=== PATIENT | female | born 1940 | race Caucasian/White ===

== ENCOUNTER 2016-07-11 08:05 | Day surgery (SDC) | payer MEDICARE ==
[~2016-07-11 08:05] MED LIST: ACET325 PO; ASPI81 PO; ATOR10TA PO; COZA100T PO; DUONI NEB; FENO160T PO; MULT1TAB PO; NORV5TAB PO; OMEG1CAP53 PO; PRIL20CA PO
[2016-07-11 08:22] VITALS: BP 198/95; PULSE 66; RESP 20; TEMP 97.7; O2SAT 97
[2016-07-11] MEDS ORDERED: METO50TA PO (08:24)
[2016-07-11] MEDS ORDERED: VITA10003 PO (08:24)
[2016-07-11] MEDS ORDERED: SODIUM CHLORID 0.9% 500 ML INJ 500 ML IV SCH (09:00)
[2016-07-11 12:10] VITALS: BP 167/74; PULSE 67; RESP 20; TEMP 99.1; O2SAT 94
[2016-07-11] MEDS ORDERED: IODIXANOL 320 MG/ML 10 ML VIAL (for Rad CT) IV ONE (12:25)
--- NOTE | 2016-07-11 14:41 | RADRPT ---
EXAM DATE/TIME: 07/11/2016 11:40 [facility] COMPARISON: CT PULMONARY ANGIOGRAM, May 27, 2014, 4:46. INDICATIONS : Bilateral lower extremity claudation IV CONTRAST: 100 cc Visipaque (iodixanol) IV RADIATION DOSE: 10.15 CTDIvol (mGy) MEDICAL HISTORY : Cardiovascular disease. Chronic obstructive pulmonary disease. Hypertension.Renal disease SURGICAL HISTORY : Hysterectomy. CABG ENCOUNTER: Initial ACUITY: 1 day PAIN SCALE: 0/10 LOCATION: Bilateral extremities TECHNIQUE: Volumetric scanning was performed using a multi-row detector CT scanner. The data was post processed with a variety of visualization algorithms including full volume maximum intensity projection, multi -planar sliding thin slab reformation, curved planar reformation, and surface rendering techniques. Using automated exposure control and adjustment of the mA and/or kV according to patient size, radiat ion dose was kept as low as reasonably achievable to obtain optimal diagnostic quality images. FINDINGS: There is a 1.2 cm nodule in the right lower lobe which appears larger than 2014. This is only increme ntally larger and PET scan is recommended to further evaluate this. The liver and spleen are normal i n size and no focal defects are identified. There are multiple stones within the gallbladder without wall thickening or pericholecystic fluid the largest measuring 6 mm. The pancreas demonstrates no cate dence of mass and there is no dilatation of the pancreatic duct. The adrenal glands and kidneys appea r normal bilaterally. No hydronephrosis or mass lesions are identified. There is diverticulosis witho ut evidence of diverticulitis. The aorta is normal in caliber. There is no evidence of aneurysm or dissection. There is 40-50% steno sis at the origin of the celiac axis. The superior mesenteric artery origin is patent. Bilateral acce [place] renal arteries are present. He lower pole renal artery on the left demonstrates findings of fibr omuscular dysplasia. The inferior mesenteric artery is not identified. Examination of the right lower extremity demonstrates no evidence of inflow stenosis. The common femo ral artery is patent. The superficial femoral artery is patent. The popliteal artery is patent. The c ontrast is dilute but no definite stenosis and infrapopliteal vessels is identified. Examination of the left lower extremity demonstrates no evidence of inflow stenosis. The common femor al artery is patent. The superficial femoral artery is patent. The popliteal artery is patent. There is three-vessel runoff to the ankle. CONCLUSION: 1. Unremarkable CT angiography of the aorta and lower extremities. No segmental occlusion is identifi ed though there is limited evaluation of the infrapopliteal vessels. 2. 1.2 cm nodule in the right lower lobe. PET/CT scan is recommended to further evaluation if clinica lly indicated. 3. Cholelithiasis 4. Fibromuscular dysplasia involving left renal artery Moustapha White MD on July 11, 2016 at 14:31 Board Certified Radiologist. This report was verified electronically.
[2016-10-24] MEDS ORDERED: TYLE325T PO (12:06)
[2016-10-24] MEDS ORDERED: FISH1000 (12:06)
[2016-10-24] MEDS ORDERED: ASPI1TAB69 PO (12:06)
[2016-10-24] MEDS ORDERED: IPRAAER INH (12:06)
[2016-10-24] MEDS ORDERED: COZA50TA PO (12:06)
[2016-10-24] MEDS ORDERED: AMLO10 PO (12:06)
[2016-10-24] MEDS ORDERED: PRIL20CA9 PO (12:06)
[2016-10-30] MEDS ORDERED: NAPR220T95 PO (07:42)
[2016-11-09] MEDS ORDERED: ASPI81TA11 PO (10:27)
[2016-11-09] MEDS ORDERED: PRIL20TA2 PO (10:27)
[2016-11-09] MEDS ORDERED: VITA100036 PO (10:28)
[2016-11-09] MEDS ORDERED: MEDI220T PO (10:28)
== END 2016-07-11 12:30 | disposition home or self-care (01) ==
LOC: HRAD 08:05 → HRIP 08:05 → HRAD 12:30
PROVIDERS: ATTEND Surgery Vascular Surgery
DX: I70.213 Atherosclerosis of native arteries of extremities with intermittent claudication, bilateral legs (principal); I77.3 Arterial fibromuscular dysplasia; I25.10 Atherosclerotic heart disease of native coronary artery without angina pectoris; I10 Essential (primary) hypertension; J44.9 Chronic obstructive pulmonary disease, unspecified; K80.20 Calculus of gallbladder without cholecystitis without obstruction; Z95.1 Presence of aortocoronary bypass graft
CPT/HCPCS: 75635; 82565; 84520; J7040; Q9967

== ENCOUNTER → 2016-10-30 | Day surgery (SDC) | payer MEDICARE ==
[~2016-10-30] MED LIST changes: -ACET325 PO; +AMLO10 PO; +ASPI1TAB69 PO; -ASPI81 PO; +ASPI81TA11 PO; -ATOR10TA PO; -COZA100T PO; +COZA50TA PO; -DUONI NEB; -FENO160T PO; +FISH1000; +IPRAAER INH; +LIDOCAINE HCL 1% 30 ML VIAL NERV BLOCK ONE; +MEDI220T PO; +METO50TA PO; -MULT1TAB PO; +NAPR220T95 PO; -NORV5TAB PO; -OMEG1CAP53 PO; -PRIL20CA PO; +PRIL20CA9 PO; +PRIL20TA2 PO; +PROPOFOL 200 MG/20 ML AMP IV ONE; +SODIUM CHLORIDE 0.9% 10 ML VIAL ONE; +TYLE325T PO; +VITA10003 PO; +VITA100036 PO; +methylPREDNISolone ACETATE 80 MG/ML VIAL ONE
--- NOTE | 2016-10-30 09:33 | M6 ---
cc: KENDY FATIMA M.D. DATE: 10/30/2016 DATE OF : 1940 PROCEDURE Caudal epidural steroid injection. PROCEDURE NOTE History and physical was completed and signed. Consent was signed. Procedure site was marked. Medications were listed and reconciled. Pain score was recorded. Allergies were noted. Timeout was taken. Fluoroscopy time was recorded where applicable. Sedation was administered or directed by Dr. Fatima. The patient was given oxygen. The patient was monitored by a registered nurse. Total procedure time was greater than 15 minutes. An IV was started, blood pressure cuff, pulse oximeter and EKG were applied. The patient was placed in the prone position, sedated with small amounts of Versed and propofol titrated to effect. Vital signs were monitored and remained stable throughout the procedure. The sacral and coccygeal area were scrubbed with antimicrobial solution and prepped with 10% Betadine solution. The sacral hiatus was palpated. A 2-1/2 inch, 20-gauge spinal needle was inserted easily on the first attempt. There was negative aspiration for blood or CSF. There was no apparent paresthesia. The patient was slowly given 20 mL of 0.5% Xylocaine, 80 mg of Depo-Medrol. The patient was taken to the recovery area with stable vital signs, neurologically intact. W. MD BABAK Agudelo/CHARLI /8:45 AM /9:31 AM
== END | disposition home or self-care (01) ==
LOC: PHSDC 06:42
PROVIDERS: ATTEND Pain Medicine Interventional Pain Medicine
DX: M51.37 Other intervertebral disc degeneration, lumbosacral region (principal)
CPT/HCPCS: 62323; 99152; J1040

== ENCOUNTER → 2016-11-15 | Day surgery (SDC) | payer MEDICARE ==
[~2016-11-15] MED LIST changes: -ASPI1TAB69 PO; -LIDOCAINE HCL 1% 30 ML VIAL NERV BLOCK ONE; +LIDOCAINE HCL 1% PF 30 ML VIAL INFIL ONE; -NAPR220T95 PO; -PRIL20CA9 PO; -VITA10003 PO
--- NOTE | 2016-11-15 12:18 | M6 ---
cc: KENDY FATIMA M.D. DATE 11/15/2016 DATE OF 1940 PROCEDURE Caudal epidural steroid injection PROCEDURE NOTE History and physical was completed and signed. Consent was signed. Procedure site was marked. Medications were listed and reconciled. Pain score was recorded. Allergies were noted. Time out was taken. Fluoroscopy time was recorded where applicable. Sedation was administered or directed by Dr. Fatima. The patient was given oxygen. The patient was monitored by a registered nurse. Total procedure time was greater than 15 minutes. An IV was started, blood pressure cuff, pulse oximeter and EKG were applied. The patient was placed in the prone position, sedated with small amounts of Versed and propofol titrated to effect. Vital signs were monitored and remained stable throughout the procedure. The sacral and coccygeal area were scrubbed with antimicrobial solution and prepped with 10% Betadine solution. The sacral hiatus was palpated. A 2-inch 20 gauge spinal needle was inserted easily on the first attempt. There was negative aspiration for blood or CSF. There was no apparent paresthesia. The patient was slowly given 20 mL of 0.5% Xylocaine which contained 80 mg of Depo-Medrol. The patient was taken to the recovery area with stable vital signs, neurologically intact. was used and a by a addendum be in the news previously dictated note on caudal epidural steroid injection and tube was placed in the note first was basis for the position. The patient which was prone site was placed for the medication which was 20 mL of half percent Xylocaine 80 mg of Depo-Medrol. W. MD BABAK Agudelo/NIKKIE /8:33 AM /12:17 PM SPEEDY
== END | disposition home or self-care (01) ==
LOC: PHSDC 06:40
PROVIDERS: ATTEND Pain Medicine Interventional Pain Medicine
DX: M54.5 Low back pain (principal); M79.606 Pain in leg, unspecified; I10 Essential (primary) hypertension; K21.9 Gastro-esophageal reflux disease without esophagitis; J44.9 Chronic obstructive pulmonary disease, unspecified; Z95.1 Presence of aortocoronary bypass graft; Z86.79 Personal history of other diseases of the circulatory system
CPT/HCPCS: 62323; 99152; J1040

== ENCOUNTER → 2016-11-17 | Outpatient (CLI) | payer MEDICARE ==
[~2016-11-17] MED LIST changes: -LIDOCAINE HCL 1% PF 30 ML VIAL INFIL ONE; -PROPOFOL 200 MG/20 ML AMP IV ONE; -SODIUM CHLORIDE 0.9% 10 ML VIAL ONE; -methylPREDNISolone ACETATE 80 MG/ML VIAL ONE
--- NOTE | 2016-11-21 11:19 | RSPPFT ---
DATE OF PROCEDURE: 11/17/16 COMMENTS: Spirometry with FVC of 2.3 predicted 3.0, FEV1 of 1.7 predicted 2.2, FEV1/FVC ratio 71% predicted 75%. Post-bronchodilator FVC increases to 2.7 and FEV1 to 1.9. RV is increased at 2.6 predicted 2.2. DLCO is 64% of predicted IMPRESSION: On the basis of the above, patient has some responsiveness to bronchodilator treatment. Air trapping is present. DLCO is decreased.
== END ==
LOC: HRSP 10:40
PROVIDERS: ATTEND Internal Medicine Pulmonary Disease
DX: R06.02 Shortness of breath (principal)
CPT/HCPCS: 94060; 94726; 94729

== ENCOUNTER → 2017-03-22 | Outpatient (CLI) | payer MEDICARE ==
--- NOTE | 2017-03-27 09:16 | RSPPFT ---
DATE OF PROCEDURE: 03/22/17 COMMENTS: Spirometry with FVC of 2.0 predicted 2.7, FEV1 of 1.3 predicted 1.9, FEV1/FVC ratio 66% predicted 80%. Lung volumes show a mild decrease with TLC at 3.6 predicted 5.3. DLCO is 43% of predicted. IMPRESSION: On the basis of the above, patient has a mild restrictive with decreased DLCO.
== END ==
LOC: PHRSP 08:30
PROVIDERS: ATTEND Internal Medicine Pulmonary Disease
DX: J44.9 Chronic obstructive pulmonary disease, unspecified (principal)
CPT/HCPCS: 94060; 94726; 94729

== ENCOUNTER 2017-09-16 23:54 | Observation (INO) | payer MEDICARE ==
[~2017-09-16] VITALS: Ht 167.6 cm; Wt 74.0 kg
[~2017-09-16 23:54] MED LIST changes: -ASPI81TA11 PO; +ASPI81TA23 PO; +CHOL10008 PO; -VITA100036 PO
[2017-09-17] VITALS (9 sets, daily range): BP systolic 113–201; BP diastolic 62–89; PULSE 67–86; RESP 14–20; TEMP 96.9–99.6; O2SAT 91–100
[2017-09-17] MEDS ORDERED: HYDR25TA5 PO (00:25)
[2017-09-17] MEDS ORDERED: ATOR10TA15 PO (00:25)
[2017-09-17] MEDS ORDERED: LOSA100T PO (00:25)
[2017-09-17] MEDS ORDERED: SODIUM CHLOR 0.9% 1000 ML INJ 1,000 ML IV SCH (00:49)
[2017-09-17] MEDS ORDERED: SODIUM CHLORIDE 0.9% FLUSH 10 ML FLUSH IV FLUSH PRN ×2 (01:00→03:45)
[2017-09-17] MEDS ORDERED: ONDANSETRON HCL 4 MG/2 ML VIAL IVP ONE (01:00)
[2017-09-17] MEDS ORDERED: MORPHINE SULFATE 2 MG/ML SYRINGE IV PUSH ONE ×2 (01:00→02:00)
--- NOTE | 2017-09-17 01:22 | PD ---
HPI Chief Complaint: Abdominal Pain Time Seen by Provider: 00:49 Travel History International Travel<30 days: No Contact w/Intl Traveler<30days: [place] Travel[place] to known affect area: No History of Present Illness HPI 77-year-old female presents to the emergency department by private transportation for evaluation of abdominal pain radiating into the back. Patient states symptoms been present since 11 PM. Patient rates pain as 8/10 intensity. Patient has history of hypertension and denies history of tobacco use. Patient is unable to identify exacerbating or alleviating factors. Patient denies any chest pain. Patient has had nausea and vomiting. No hematemesis no coffee-ground emesis no melena hematochezia. Patient denies diarrhea. No history of dietary indiscretion well water ingestion or foreign travel. PFSH Past Medical History Narrative Medical CAD NC CABG dyslipidemia depression palpitations diverticulosis COPD hypertension partial colectomy hysterectomy no tobacco use nursing notes reviewed Arthritis: No Asthma: No Depression: Yes Heart Rhythm Problems: Yes (palpitation) Cancer: Yes (breast ) Cardiovascular Problems: Yes (may 2014 cabg, heart attack) High Cholesterol: Yes Chemotherapy: No Chest Pain: Yes Congestive Heart Failure: No COPD: No Cerebrovascular Accident: No Diabetes: No Diminished Hearing: No Diverticulitis: Yes Endocrine: No Gastrointestinal Disorders: Yes (diverticulosis in past) GERD: Yes Genitourinary: No Headaches: Yes Hepatitis: No Hiatal Hernia: No Hypertension: Yes Immune Disorder: No Inguinal Hernia: Yes Implanted Vascular Access Dvce: No Kidney Stones: No Medical other: No Musculoskeletal: No Neurologic: No Psychiatric: Yes (anxiety) Reproductive: No Respiratory: Yes (copd) Immunizations Current: Yes Migraines: No Myocardial Infarction: No Radiation Therapy: Yes Renal Failure: No Seizures: No Ulcer: No Tetanus Vaccination: Unknown Influenza Vaccination: Yes Past Surgical History Abdominal Surgery: Yes (PARTIAL COLECETOMY 2007) AICD: No Appendectomy: No Cardiac Surgery: Yes (cabg may 2014) Cholecystectomy: No Ear Surgery: No Endocrine Surgery: No Eye Surgery: Yes (cataract repair both eyes with in 1.6 yrs ago) Genitourinary Surgery: No Hysterectomy: Yes Joint Replacement: No Neurologic Surgery: No Oral Surgery: No Pacemaker: No Thoracic Surgery: No Other Surgery: Yes Social History Alcohol Use: Yes (Socially ) Tobacco Use: No (QUIT 2 YRS AGO) Substance Use: No Allergies-Medications (Allergen,Severity, Reaction): Coded Allergies: cephalexin (Unverified Allergy, Mild, RASH, 01/30/17) penicillin G (Unverified Allergy, Mild, HIVES, 01/30/17) Reported Meds & Prescriptions Reported Meds & Active Scripts Active Reported Atorvastatin (Atorvastatin Calcium) 10 Mg Tab 10 Mg PO HS Hydrochlorothiazide 25 Mg Tab 25 Mg PO DAILY Losartan (Losartan Potassium) 100 Mg Tab 100 Mg PO DAILY Vitamin D3 (Cholecalciferol) 1,000 Unit Cap 1,000 Units PO DAILY Prilosec (Omeprazole Magnesium) 20 Mg Tab 20 Mg PO DAILY Aspirin EC (Aspirin) 81 Mg Tabdr 81 Mg PO DAILY Fish Oil ([place]-3 Fatty Acids) 1,000 Mg Cap Norvasc (Amlodipine Besylate) 10 Mg Tab 10 Mg PO DAILY Metoprolol Tartrate 50 Mg Tab 50 Mg PO BID Review of Systems Except as stated in HPI: all other systems reviewed are Neg General / Constitutional: No: Fever, Chills HENT: No: Congestion Cardiovascular: No: Chest Pain or Discomfort Respiratory: No: Shortness of Breath Gastrointestinal: Positive: Nausea, Vomiting, Abdominal Pain Genitourinary: Positive: Flank Pain Musculoskeletal: No: Myalgias, Arthralgias Skin: No Rash Neurologic: No: Weakness, Dizziness, Syncope Psychiatric: No: Anxiety Hematologic/Lymphatic: No: Lymph Node Enlargement Physical Exam Narrative GENERAL: Well-developed well-nourished female no acute distress or respiratory distress SKIN: Warm and dry. HEAD: Normocephalic. EYES: No scleral icterus. No injection or drainage. NECK: Supple, trachea midline. No JVD or lymphadenopathy. CARDIOVASCULAR: Regular rate and rhythm without murmurs, gallops, or rubs. RESPIRATORY: Breath sounds equal bilaterally. No accessory muscle use. GASTROINTESTINAL: Abdomen soft, non-tender, nondistended. MUSCULOSKELETAL: No cyanosis, or edema. BACK: Nontender without obvious deformity. No CVA tenderness. Data Data Last Documented VS Vital Signs Date Time Temp Pulse Resp B/P (MAP) Pulse Ox O2 Delivery O2 Flow Rate FiO2 09/17/17 02:00 86 16 161/79 (106) 09/17/17 01:25 100 Room Air 09/17/17 00:01 97.8 Orders Orders Complete Blood Count With Diff (09/17/17 00:49) Comprehensive Metabolic Panel (09/17/17 00:49) Lipase (09/17/17 00:49) Lactic Acid (09/17/17 00:49) Prothrombin Time / Inr (Pt) (09/17/17 00:49) Act Partial Throm Time (Ptt) (09/17/17 00:49) Urinalysis - C+S If Indicated (09/17/17 00:49) Iv Access Insert/Monitor (09/17/17 00:49) Ecg Monitoring (09/17/17 00:49) Oximetry (09/17/17 00:49) Ondansetron Inj (Zofran Inj) (09/17/17 01:00) Sodium Chlor 0.9% 1000 Ml Inj (Ns 1000 M (09/17/17 00:49) Sodium Chloride 0.9% Flush (Ns Flush) (09/17/17 01:00) Electrocardiogram (09/17/17 00:49) Chest, Single Ap (09/17/17 00:49) Morphine Inj (Morphine Inj) (09/17/17 01:00) Troponin I (09/17/17 00:49) Type And Screen (09/17/17 00:49) Urine Culture (09/17/17 01:11) Ondansetron Inj (Zofran Inj) (09/17/17 02:00) Morphine Inj (Morphine Inj) (09/17/17 02:00) Ct Abd/Pel W Iv Contrast(Rout) (09/17/17 ) Ct Thorax/ Chest Wo Iv Contras (09/17/17 ) Iodixanol 320 Inj (Rad Ct) (Visipaque 32 (09/17/17 02:39) Admit Order (Ed Use Only) (09/17/17 ) Clinical Psychiatrist / Telemetry RITIKA.Q8H (09/17/17 03:42) Diet Npo (09/17/17 Breakfast) Activity Oob With Assistance (09/17/17 03:42) Notify Dr: Other (09/17/17 03:42) Consult Vascular Surgery (09/17/17 ) Morphine Inj (Morphine Inj) (09/17/17 03:45) Place In Observation (09/17/17 ) Vital Signs (Adult) Q4H (09/17/17 03:34) Activity Oob With Assistance (09/17/17 03:34) Sodium Chlor 0.9% 1000 Ml Inj (Ns 1000 M (09/17/17 03:34) Sodium Chloride 0.9% Flush (Ns Flush) (09/17/17 03:45) Sodium Chloride 0.9% Flush (Ns Flush) (09/17/17 09:00) Acetaminophen (Tylenol) (09/17/17 03:45) Ondansetron Inj (Zofran Inj) (09/17/17 03:45) Comprehensive Metabolic Panel (09/18/17 06:00) Complete Blood Count With Diff (09/18/17 06:00) Heparin Inj (Heparin Inj) (09/17/17 04:00) Naloxone Inj (Narcan Inj) (09/17/17 03:45) Docusate Sodium-Senna (Veronica-Colace) (09/17/17 09:00) Magnesium Hydroxide Liq (Milk Of Magnesi (09/17/17 03:45) Sennosides (Senokot) (09/17/17 03:45) Bisacodyl Supp (Dulcolax Supp) (09/17/17 03:45) Lactulose Liq (Lactulose Liq) (09/17/17 03:45) Labs Laboratory Tests Test 09/17/17 01:11 White Blood Count 5.7 TH/MM3 Red Blood Count 3.23 MIL/MM3 Hemoglobin 11.0 GM/DL Hematocrit 32.0 % Mean Corpuscular Volume 99.2 FL Mean Corpuscular Hemoglobin 34.0 PG Mean Corpuscular Hemoglobin Concent 34.3 % Red Cell Distribution Width 14.4 % Platelet Count 215 TH/MM3 Mean Platelet Volume 8.0 FL Neutrophils (%) (Auto) 70.7 % Lymphocytes (%) (Auto) 15.2 % Monocytes (%) (Auto) 8.8 % Eosinophils (%) (Auto) 4.5 % Basophils (%) (Auto) 0.8 % Neutrophils # (Auto) 4.0 TH/MM3 Lymphocytes # (Auto) 0.9 TH/MM3 Monocytes # (Auto) 0.5 TH/MM3 Eosinophils # (Auto) 0.3 TH/MM3 Basophils # (Auto) 0.0 TH/MM3 CBC Comment DIFF FINAL Differential Comment Prothrombin Time 10.7 SEC Prothromb Time International Ratio 1.1 RATIO Activated Partial Thromboplast Time 26.1 SEC Urine Collection Type CLEAN CATCH Urine Color YELLOW Urine Turbidity CLEAR Urine pH 6.5 Urine Specific [place] 1.010 Urine Protein NEG mg/dL Urine Glucose (UA) NEG mg/dL Urine Ketones NEG mg/dL Urine Occult Blood NEG Urine Nitrite NEG Urine Bilirubin NEG Urine Urobilinogen 1.0 MG/DL Urine Leukocyte Esterase SMALL Urine WBC 6-8 /hpf Urine WBC Clumps OCC Urine Squamous Epithelial Cells 0-5 /hpf Urine Mucus RARE /lpf Microscopic Urinalysis Comment CULTURE INDICATED Blood Urea Nitrogen 21 MG/DL Creatinine 1.40 MG/DL Random Glucose 147 MG/DL Total Protein 8.1 GM/DL Albumin 3.9 GM/DL Calcium Level 9.1 MG/DL Alkaline Phosphatase 140 U/L Aspartate Amino Transf (AST/SGOT) 18 U/L Alanine Aminotransferase (ALT/SGPT) 19 U/L Total Bilirubin 0.5 MG/DL Sodium Level 138 MEQ/L Potassium Level 3.8 MEQ/L Chloride Level 104 MEQ/L Carbon Dioxide Level 24.8 MEQ/L Anion Gap 9 MEQ/L Estimat Glomerular Filtration Rate 36 ML/MIN Lactic Acid Level 1.7 mmol/L Troponin I LESS THAN 0.02 NG/ML Lipase 176 U/L [facility] Medical Decision Making Medical Screen Exam Complete: Yes Emergency Medical Condition: Yes Medical Record Reviewed: Yes Interpretation(s) EKG: Normal sinus rhythm rate 65 first-degree AV block no acute ST elevation injury pattern or ectopy noted Last Impressions Chest CT 09/17/17 0000 Signed Impressions: Service Date/Time: Sunday, September 17, 2017 02:09 - CONCLUSION: Tiny right lung nodules. Small right pleural effusion Ludwig Ricardo MD Abdomen/Pelvis CT 09/17/17 0000 Signed Impressions: Service Date/Time: Sunday, September 17, 2017 02:09 - CONCLUSION: Gallstones. Severe atherosclerotic changes with high-grade aortic and left iliac stenoses. This disease does appear amenable to endovascular repair. Right pleural effusion Ludwig Ricardo MD CBC & BMP Diagram 09/17/17 01:11 Total Protein 8.1, Albumin 3.9, Calcium Level 9.1, Alkaline Phosphatase 140 H, Aspartate Amino Transf (AST/SGOT) 18, Alanine Aminotransferase (ALT/SGPT) 19, Total Bilirubin 0.5 Vital Signs Date Time Temp Pulse Resp B/P (MAP) Pulse Ox O2 Delivery O2 Flow Rate FiO2 09/17/17 02:00 86 16 161/79 (106) 09/17/17 01:25 16 100 Room Air 09/17/17 00:20 18 09/17/17 00:01 97.8 73 20 201/89 (126) 98 lactic acid: 1.7 ua: wbc, clumped wbc's; cx indicated Differential Diagnosis Abdominal pain, atypical chest pain, abdominal aortic aneurysm, biliary colic, pancreatitis, appendicitis, renal colic, UTI, diverticulitis Narrative Course Patient placed on color television console monitor with continuous pulse oximetry IV access obtain EKG performed which is sinus rhythm first-degree AV block rate of [address] elevation or injury pattern noted Patient administered normal saline at 1 25 cc an hour Zofran 4 mg IV along with morphine [address] abdomen pelvis ordered Physician Communication Physician Communication discussed with Dr Murrieta Diagnosis Primary Impression: Abdominal pain Qualified Codes: R10.31 - Right lower quadrant pain Additional Impressions: Biliary colic Aorto-iliac atherosclerosis Admitting Information Admitting Physician Requests: Observation Brook Ahmadi MD Sep 17, 2017 01:22
[2017-09-17 01:25] LABS: BASOPHIL % 0.8 % (0.0-2.0); EOSINOPHIL # 0.3 TH/MM3 (0-0.4); EOSINOPHIL % 4.5 % (0.0-4.0); LYMPH % 15.2 % (9.0-44.0); LYMPHOCYTE # 0.9 TH/MM3 (1.0-4.8); MEAN CELL VOLUME 99.2 FL (80.0-100.0); MEAN CORPUSCULAR HGB CONC 34.3 % (32.0-36.0); MONO % 8.8 % (0.0-8.0); MONOCYTE # 0.5 TH/MM3 (0-0.9); NEUT % 70.7 % (16.0-70.0); PLATELET COUNT 215 TH/MM3 (150-450); RED BLOOD COUNT 3.23 MIL/MM3 (4.00-5.30); RED CELL DISTRIBUTION WIDTH 14.4 % (11.6-17.2); WHITE BLOOD COUNT 5.7 TH/MM3 (4.0-11.0)
[2017-09-17 01:38] LABS: CHLORIDE 104 MEQ/L (98-107); SODIUM (NA) 138 MEQ/L (136-145)
[2017-09-17 01:40] LABS: BILIRUBIN, URINE NEG (NEG); BLOOD, URINE NEG (NEG); GLUCOSE,URINE NEG (NEG); KETONE, URINE NEG (NEG); NITRITE,URINE NEG (NEG); PH, URINE 6.5 (5.0-8.5); URINE COLOR YELLOW (YELLW/STRAW); URINE LEUKOCYTE ESTERASE SMALL (NEG)
[2017-09-17 01:42] LABS: CALCIUM 9.1 MG/DL (8.5-10.1); INTERNATIONAL NORMALIZED RATIO 1.1 RATIO; PROTHROMBIN TIME - PATIENT 10.7 SEC (9.8-11.6)
[2017-09-17 01:43] LABS: ALBUMIN 3.9 GM/DL (3.4-5.0); BICARBONATE 24.8 MEQ/L (21.0-32.0); BLOOD UREA NITROGEN 21 MG/DL (7-18); GLUCOSE,RANDOM 147 MG/DL (74-106)
[2017-09-17 01:45] LABS: ALT (GPT) 19 U/L (10-53)
[2017-09-17 01:46] LABS: AST (GOT) 18 U/L (15-37); GLOMERULAR FILTRATION RATE 36 ML/MIN (>89)
[2017-09-17 01:47] LABS: TOTAL BILIRUBIN ADULT 0.5 MG/DL (0.2-1.0); TOTAL PROTEIN 8.1 GM/DL (6.4-8.2)
[2017-09-17 01:48] LABS: ALKALINE PHOSPHATASE 140 U/L (45-117)
[2017-09-17 01:51] LABS: TROPONIN I LESS THAN 0.02 NG/ML (0.02-0.05)
[2017-09-17 01:54] LABS: MUCUS URINE RARE /lpf (OCC)
[2017-09-17 01:55] LABS: SQUAMOUS EPITHELIAL CELL URINE 0-5 /hpf (0-5); WHITE BLOOD CELL CLUMPS OCC
[2017-09-17] MEDS ORDERED: ONDANSETRON HCL 4 MG/2 ML VIAL IV PUSH ONE (02:00)
[2017-09-17] MEDS ORDERED: IODIXANOL 320 MG/ML 10 ML VIAL (for Rad CT) IVCONTRAST ONE (02:39)
--- NOTE | 2017-09-17 02:55 | RADRPT ---
EXAM DATE/TIME: 09/17/2017 02:09 [facility] COMPARISON: CTA RUNOFF W 3D RECON, July 11, 2016, 11:40. INDICATIONS : Abdominal pain. IV CONTRAST: 50 cc Visipaque (iodixanol) IV ORAL CONTRAST: No oral contrast ingested. RADIATION DOSE: 10.40 CTDIvol (mGy) MEDICAL HISTORY : Diverticulitis. Gastroesophageal reflux disease. Carcinoma, lung. SURGICAL HISTORY : Hysterectomy. Lobectomy.Partial colectomy. ENCOUNTER: Initial ACUITY: 1 day PAIN SCALE: 9/10 LOCATION: Bilateral lower quadrant TECHNIQUE: Volumetric scanning of the abdomen and pelvis was performed. Using automated exposure control and ad justment of the mA and/or kV according to patient size, radiation dose was kept as low as reasonably achievable to obtain optimal diagnostic quality images. DICOM format image data is available electro nically for review and comparison. FINDINGS: LOWER LUNGS: Right pleural effusion LIVER: Homogeneous density without lesion. There is no dilation of the biliary tree. Mildly distended gallb ladder with multiple small calcific stones.. SPLEEN: Normal size without lesion. PANCREAS: Within normal limits. KIDNEYS: Normal in size and shape. There is no mass, stone or hydronephrosis. ADRENAL GLANDS: Within normal limits. VASCULAR: Severe atherosclerotic disease involving abdominal aorta with dense intimal calcification throughout. High-grade distal aortic calcific stenosis and high-grade left common iliac calcific stenosis with l ess severe disease on the contralateral right side. BOWEL/MESENTERY: Colonic diverticulosis. No abnormal dilatation, wall thickening or focal inflammatory changes. Rectal anastomosis. ABDOMINAL WALL: Within normal limits. RETROPERITONEUM: There is no lymphadenopathy. BLADDER: No wall thickening or mass. REPRODUCTIVE: Within normal limits. INGUINAL: There is no lymphadenopathy or hernia. MUSCULOSKELETAL: Left convex lumbar scoliosis with degenerative changes in the spine and hips. CONCLUSION: Gallstones. Severe atherosclerotic changes with high-grade aortic and left iliac stenoses. This disease does appe ar amenable to endovascular repair. Right pleural effusion Ludwig Ricardo MD on September 17, 2017 at 2:38 Board Certified Radiologist. This report was verified electronically.
--- NOTE | 2017-09-17 03:06 | RADRPT ---
EXAM DATE/TIME: 09/17/2017 02:09 [facility] COMPARISON: No previous studies available for comparison. INDICATIONS : Evalaute for pleural effusion. RADIATION DOSE: 7.98 CTDIvol (mGy) MEDICAL HISTORY : Carcinoma, lung. SURGICAL HISTORY : Lobectomy. CABG ENCOUNTER: Initial ACUITY: 1 day PAIN SCALE: 0/10 LOCATION: Right chest TECHNIQUE: Volumetric scanning of the chest was performed. Using automated exposure control and adjustment of t he mA and/or kV according to patient size, radiation dose was kept as low as reasonably achievable to obtain optimal diagnostic quality images. DICOM format image data is available electronically for r eview and comparison. Follow-up recommendations for detected pulmonary nodules are based at a minimum on nodule size and pa tient risk factors according to Fleischner Society Guidelines. FINDINGS: LUNGS: There are several tiny parenchymal lung nodules on the right, largest about 4-5 mm. Minimal pleural p arenchymal scarring or atelectasis is present in the left upper lobe. PLEURAE: Small right pleural effusion. MEDIASTINUM: The heart and great vessels demonstrate no acute abnormality. There is no mediastinal or hilar lymph adenopathy. AXILLAE: Within normal limits. No lymphadenopathy. MUSCULOSKELETAL: Within normal limits for patient age. CONCLUSION: Tiny right lung nodules. Small right pleural effusion Ludwig Ricardo MD on September 17, 2017 at 3:00 Board Certified Radiologist. This report was verified electronically.
[2017-09-17] MEDS ORDERED: LACTULOSE SYRUP 20 GM/30 ML CUP PO PRN (03:45)
[2017-09-17] MEDS ORDERED: MORPHINE SULFATE 2 MG/ML SYRINGE IV PUSH PRN (03:45)
[2017-09-17] MEDS ORDERED: ONDANSETRON HCL 4 MG/2 ML VIAL IVP PRN (03:45)
[2017-09-17] MEDS ORDERED: MAGNESIUM HYDROXIDE SUSP 30 ML CUP PO PRN (03:45)
[2017-09-17] MEDS ORDERED: NALOXONE HCL 0.4 MG/ML AMP IV PUSH PRN (03:45)
[2017-09-17] MEDS ORDERED: BISACODYL 10 MG SUPP RECTAL PRN (03:45)
[2017-09-17] MEDS ORDERED: SENNOSIDES 8.6 MG TAB PO PRN (03:45)
[2017-09-17] MEDS ORDERED: ACETAMINOPHEN 325 MG TAB PO PRN (03:45)
[2017-09-17] MEDS ORDERED: NITROFURANTOIN MONOHYD MACROCR 100 MG CAP PO ONE (04:00)
[2017-09-17] MEDS: SODIUM CHLOR 0.9% 1000 ML INJ 1,000 ML IV SCH ×2 (04:22→16:14)
[2017-09-17] MEDS: HEPARIN SODIUM - SQ 10,000 UNITS/ML VIAL SQ SCH ×2 (04:23→16:07)
--- NOTE | 2017-09-17 06:56 | RADRPT ---
EXAM DATE/TIME: 09/17/2017 01:32 [facility] COMPARISON: CT THORAX W/O CONTRAST, September 17, 2017, 2:09. CHEST SINGLE AP, June 01, 2014, 12:28. INDICATIONS : Abdominal pain. MEDICAL HISTORY : Cardiovascular disease. Chronic obstructive pulmonary disease. Hypertension.Renal disease SURGICAL HISTORY : Hysterectomy. CABG ENCOUNTER: Initial ACUITY: 1 day PAIN SCORE: 2/10 LOCATION: Bilateral chest FINDINGS: Several tiny nodular densities along the right lung. Hazy opacity at the right base which is presumed effusion. Left lung grossly clear. Cardiac contours are satisfactory. Previous sternotomy. CONCLUSION: Right lung nodules and right pleural effusion Ludwig Ricardo MD on September 17, 2017 at 6:54 Board Certified Radiologist. This report was verified electronically.
--- NOTE | 2017-09-17 08:24 | EKG ---
Date Performed: 09/17/2017 Time Performed: 01:10:37 PTAGE: 77 years EKG: Sinus rhythm WITH FIRST DEGREE AV BLOCK POSSIBLE LEFT ATRIAL ENLARGEMENT PREVIOUS TRACING : 05/30/2014 04.45 Since the previous tracing, no significant change not ed DOCTOR: Mable Edwards Interpretating Date/Time 09/17/2017 08:23:13
[2017-09-17] MEDS: SODIUM CHLORIDE 0.9% FLUSH 10 ML FLUSH IV FLUSH SCH ×2 (08:51→20:50)
[2017-09-17] MEDS: DOCUSATE SODIUM 50 MG/SENNA 8.6 MG TAB PO SCH ×2 (08:53→20:50)
[2017-09-17] MEDS ORDERED: ACETAMINOPHEN/HYDROcodone 325 MG/5 MG TAB PO PRN (10:45)
--- NOTE | 2017-09-17 11:55 | HHI.HP ---
HPI Service [facility] Primary Care Physician Fantasma Puentes DO Admission Diagnosis biliary colic; aorto-iliac atherosclerosis Diagnoses: Chief Complaint: abd pain Travel History International Travel<30 Days: No Contact w/Intl Traveler <30 Da: [place] Traveled to: [place] Traveled to Known Affected Are: No History of Present Illness 77-year-old white female being admitted for intractable abdominal pain. Patient states she was in her usual state of health until sometime around 11 PM last night when she experienced a sudden onset diffuse bandlike abdominal pain that was gnawing in nature. Initially she was able to tolerated. She would bend forward and got just transient minimal relief. Otherwise she is crawled into bed to see if her pain would go away. However she woke up in the middle the night with recurrence of the pain followed by nausea and dry heaving, thus prompting her to come to the emergency department. Patient denies having any change in her bowel patterns, says she goes almost daily, last bowel movements were yesterday and normal and formed. Denies any melena or bright red blood per rectum. Reported some chills but no fevers. In the ER she actually vomited and saw items from her lunch yesterday including turkey and some green beans. The emergency room they performed a CT scan which showed no acute findings, there was incidentally severe atherosclerotic disease noted in the aorta and iliac vessels. Chest CT chest x-ray were also performed which were unremarkable. At this point the patient says her pain is much improved, received some morphine in the ER. Review of Systems Except as stated in HPI: all other systems reviewed are Neg Past Family Social History Past Medical History Coronary artery disease Ovarian cysts Breast cancer Lung cancer Diverticulosis Past Surgical History Multiple abdominal surgeries including partial colon resection for diverticulosis, hysterectomy, appendectomy Allergies: Coded Allergies: cephalexin (Unverified Allergy, Mild, RASH, 01/30/17) penicillin G (Unverified Allergy, Mild, HIVES, 01/30/17) Family History Breast cancer in the mother, heart disease in family Social History Stop smoking in the , drinks up to 3 margaritas a day sometimes none a day Physical Exam Vital Signs Vital Signs Date Time Temp Pulse Resp B/P (MAP) Pulse Ox O2 Delivery O2 Flow Rate FiO2 09/17/17 10:56 71 09/17/17 08:00 96.9 67 14 148/68 (94) 97 09/17/17 07:10 09/17/17 06:36 76 16 113/62 (79) 95 Room Air 09/17/17 02:00 86 16 161/79 (106) 09/17/17 01:25 16 100 Room Air 09/17/17 00:20 18 09/17/17 00:01 97.8 73 20 201/89 (126) 98 Physical Exam VS: afebrile GENERAL: Well-nourished elderly white female, appears young for age, no acute distress SKIN: Warm and dry. EYES: No scleral icterus. No injection or drainage. ENT: Normocephalic, atraumatic CARDIOVASCULAR: Regular rate and rhythm. no murmurs RESPIRATORY: No accessory muscle use. Clear to auscultation. Breath sounds equal bilaterally. GASTROINTESTINAL: Abdomen soft, no lexi tenderness to palpation throughout all 4 quadrants, no rebound Extremities: No clubbing, cyanosis, or edema. No obvious deformities. MUSCULOSKELETAL: adequate muscle bulk and tone for age and habitus NEUROLOGICAL: Awake and alert. No obvious cranial nerve deficits. No facial droop nor slurred speech noted. PSYCHIATRIC: Appropriate mood and affect; insight and judgment normal. Laboratory Laboratory Tests Test 09/17/17 01:11 White Blood Count 5.7 Red Blood Count 3.23 Hemoglobin 11.0 Hematocrit 32.0 Mean Corpuscular Volume 99.2 Mean Corpuscular Hemoglobin 34.0 Mean Corpuscular Hemoglobin Concent 34.3 Red Cell Distribution Width 14.4 Platelet Count 215 Mean Platelet Volume 8.0 Neutrophils (%) (Auto) 70.7 Lymphocytes (%) (Auto) 15.2 Monocytes (%) (Auto) 8.8 Eosinophils (%) (Auto) 4.5 Basophils (%) (Auto) 0.8 Neutrophils # (Auto) 4.0 Lymphocytes # (Auto) 0.9 Monocytes # (Auto) 0.5 Eosinophils # (Auto) 0.3 Basophils # (Auto) 0.0 CBC Comment DIFF FINAL Differential Comment Prothrombin Time 10.7 Prothromb Time International Ratio 1.1 Activated Partial Thromboplast Time 26.1 Urine Collection Type CLEAN CATCH Urine Color YELLOW Urine Turbidity CLEAR Urine pH 6.5 Urine Specific [place] 1.010 Urine Protein NEG Urine Glucose (UA) NEG Urine Ketones NEG Urine Occult Blood NEG Urine Nitrite NEG Urine Bilirubin NEG Urine Urobilinogen 1.0 Urine Leukocyte Esterase SMALL Urine WBC 6-8 Urine WBC Clumps OCC Urine Squamous Epithelial Cells 0-5 Urine Mucus RARE Microscopic Urinalysis Comment CULTURE INDICATED Blood Urea Nitrogen 21 Creatinine 1.40 Random Glucose 147 Total Protein 8.1 Albumin 3.9 Calcium Level 9.1 Alkaline Phosphatase 140 Aspartate Amino Transf (AST/SGOT) 18 Alanine Aminotransferase (ALT/SGPT) 19 Total Bilirubin 0.5 Sodium Level 138 Potassium Level 3.8 Chloride Level 104 Carbon Dioxide Level 24.8 Anion Gap 9 Estimat Glomerular Filtration Rate 36 Lactic Acid Level 1.7 Troponin I LESS THAN 0.02 Lipase 176 Date/Time Source Procedure Growth Status 09/17/17 01:11 Urine Clean Catch Urine Culture Pending Received Result Diagram: 09/17/17 0111 09/17/17 0111 Imaging Last Impressions Chest X-Ray 09/17/17 0049 Signed Impressions: Service Date/Time: Sunday, September 17, 2017 01:32 - CONCLUSION: Right lung nodules and right pleural effusion Ludwig Ricardo MD Chest CT 09/17/17 0000 Signed Impressions: Service Date/Time: Sunday, September 17, 2017 02:09 - CONCLUSION: Tiny right lung nodules. Small right pleural effusion Ludwig Ricardo MD Abdomen/Pelvis CT 09/17/17 0000 Signed Impressions: Service Date/Time: Sunday, September 17, 2017 02:09 - CONCLUSION: Gallstones. Severe atherosclerotic changes with high-grade aortic and left iliac stenoses. This disease does appear amenable to endovascular repair. Right pleural effusion Ludwig Ricardo MD Caprini VTE Risk Assessment Caprini VTE Risk Assessment: Mod/High Risk (score >= 2) Caprini Risk Assessment Model Point Value = 1 Point Value = 2 Point Value = 3 Point Value = 5 Age 41-60 Minor surgery BMI > 25 kg/m2 Swollen legs Varicose veins or History of unexplained or recurrent spontaneous Oral contraceptives or hormone replacement Sepsis (< 1 month) Serious lung disease, including pneumonia (< 1 month) Abnormal pulmonary function Acute myocardial infarction Congestive heart failure (< 1 month) History of inflammatory bowel disease Medical patient at bed rest Age 61-74 Arthroscopic surgery Major open surgery (> 45 min) Laparoscopic surgery (> 45 min) Malignancy Confined to bed (> 72 hours) Immobilizing plaster cast Central venous access Age >= 75 History of VTE Family history of VTE Factor V Leiden Prothrombin [id number] Lupus anticoagulant Anticardiolipin antibodies Elevated serum homocysteine Heparin-induced thrombocytopenia Other congenital or acquired thrombophilia Stroke (< 1 month) Elective arthroplasty Hip, pelvis, or leg fracture Acute spinal cord injury (< 1 month) Prophylaxis Regimen Total Risk Factor Score Risk Level Prophylaxis Regimen 0-1 Low Early ambulation 2 Moderate Order ONE of the following: *Sequential Compression Device (SCD) *Heparin 5000 units SQ BID 3-4 Higher Order ONE of the following medications: *Heparin 5000 units SQ TID *Enoxaparin/Lovenox 40 mg SQ daily (WT < 150 kg, CrCl > 30 mL/min) *Enoxaparin/Lovenox 30 mg SQ daily (WT < 150 kg, CrCl > 10-29 mL/min) *Enoxaparin/Lovenox 30 mg SQ BID (WT < 150 kg, CrCl > 30 mL/min) AND/OR *Sequential Compression Device (SCD) 5 or more Highest Order ONE of the following medications: *Heparin 5000 units SQ TID (Preferred with Epidurals) *Enoxaparin/Lovenox 40 mg SQ daily (WT < 150 kg, CrCl > 30 mL/min) *Enoxaparin/Lovenox 30 mg SQ daily (WT < 150 kg, CrCl > 10-29 mL/min) *Enoxaparin/Lovenox 30 mg SQ BID (WT < 150 kg, CrCl > 30 mL/min) AND *Sequential Compression Device (SCD) Assessment and Plan Assessment and Plan 87-year-old white female admitted for abdominal pain Intractable abdominal pain -Much improved since admission, will transition from IV to p.o. pain medication -I independently reviewed the CT scan and noted just some mild constipation -I will obtain a gallbladder ultrasound as well as a HIDA scan to workup for any GI causes of her pain. At this point in time it is difficult to say whether there is any vascular occlusive etiology to her abdominal pain since it is much improved and she has not had any classic symptoms of mesenteric ischemia such as bloody diarrhea or ongoing pain out of proportion. -P.o. trial after studies if they are negative LINDA - IVFs, bmp in AM Aortic atherosclerosis - Discussed case with vascular surgery mid-level, with patient not having any acute symptoms of acute on chronic claudication can be followed up as an outpatient Claudication -Appears chronic, I will have patient walk around and see if her pain remains at baseline HTN/HYL - home lipitor and lopressor and losartan heparin Addendum: HIDA scan shows abnormal nonvisualization of the gallbladder. Unable to determine if this is just delayed filling versus obstruction. Discussed with electronics engineering technician, order already in place for delayed filling quick scan tomorrow morning. will perform po trial for now. NPO after midnight. Jon Hensley MD Sep 17, 2017 11:55
--- NOTE | 2017-09-17 13:47 | RADRPT ---
EXAM DATE/TIME: 09/17/2017 12:35 [facility] COMPARISON: CT ABDOMEN & PELVIS W CONTRAST, September 17, 2017, 2:09. INDICATIONS : Nausea and vomiting. MEDICAL HISTORY : Hypertension. Chronic obstructive pulmonary disease. Gastroesophageal reflux disease. Heart attack. D iverticulosis. Renal disease. Breast and lung cancer. SURGICAL HISTORY : CABG. Hysterectomy. Cataract surgery. Partial colectomy. Left breast surgery. Lymph node removed. H ernia repair. ENCOUNTER: Initial ACUITY: 2 days PAIN SCORE: 0/10 LOCATION: Right upper quadrant MEASUREMENTS: LIVER: 13.6 cm length COMMON DUCT: 8 mm RIGHT KIDNEY: 10.5 x 5.2 x 5.5 cm FINDINGS: LIVER: Normal echotexture without focal lesion or ductal dilatation. COMMON DUCT: No intraluminal mass or stone visualized. GALLBLADDER: Abnormal appearance to the gallbladder with multiple echogenic foci which demonstrate acoustic shadow ing suggestive of moderate-sized gallstones. The gallbladder wall is thickened measuring up to 7 mm. There is evidence of some pericholecystic fluid. PANCREAS: The visualized portions of the head and body are within normal limits. RIGHT KIDNEY: No evidence of hydronephrosis. There is a focal echogenic but non-shadowing focus in the lower pole parenchyma measuring 6 x 7 mm. CONCLUSION: 1. Abnormal appearance of the gallbladder with gallbladder wall thickening, probable stones, and petey cholecystic fluid. 2. Normal dimension common hepatic duct. 3. 6 x 7 mm hyperechogenic shadowing focus in the cortex of the lower pole of the right kidney are no nspecific in appearance. Brenden Tyler MD on September 17, 2017 at 13:41 Board Certified Radiologist. This report was verified electronically.
[2017-09-17] MEDS: LOSARTAN 50 MG TAB PO SCH (16:07)
[2017-09-17] MEDS: ASPIRIN EC 81 MG TABEC PO SCH (16:07)
[2017-09-17] MEDS: METOPROLOL TARTRATE 50 MG TAB PO SCH ×2 (16:07→20:50)
[2017-09-17] MEDS: CHOLECALCIFEROL (VIT D3) 1000 UNIT TAB PO SCH (16:07)
--- NOTE | 2017-09-17 16:09 | RADRPT ---
EXAM DATE/TIME: 09/17/2017 13:28 This report includes an Addendum and supersedes previous reports for this exam. [facility] COMPARISON: US ABDOMEN - GALLBLADDER, September 17, 2017, 12:35. INDICATIONS : Abdominal pain. DOSE: 4.3 mCi Tc99m Mebrofenin IV MEDICAL HISTORY : Diverticulitis. Gastroesophageal reflux disease. Carcinoma, lung. Gallstones. SURGICAL HISTORY : Hysterectomy. Lobectomy. Partial cholectomy. ENCOUNTER: Initial ACUITY: 1 day PAIN SCALE: 9/10 LOCATION: Right upper quadrant TECHNIQUE: Following the intravenous administration of radiotracer, dynamic sequential images were performed wit h continuous acquisition. FINDINGS: HEPATIC KINETICS: There is prompt uptake of radiotracer in the liver. No focal defects are seen. There is normal rate of washout from the hepatic parenchyma. BILIARY CLEARANCE: Activity is first seen in the extrahepatic biliary system at 20 minutes. There is normal excretion i nto the small bowel. GALLBLADDER: The gallbladder is not visualized. BILIARY ENTRIC REFLUX: None observed. CONCLUSION: Nonvisualization of the gallbladder. Moustapha White MD on September 17, 2017 at 15:52 Board Certified Radiologist. This report was verified electronically. ADDENDUM: 18 hour images demonstrate persistent nonvisualization of the gallbladder characteristic of acute cho lecystitis Moustapha White MD on September 18, 2017 at 8:52 Board Certified Radiologist. This report was verified electronically.
[2017-09-17] MEDS ORDERED: POLYETHYLENE GLYCOL 17 GM PKG PO ONE (16:30)
[2017-09-17] MEDS: SIMETHICONE 125 MG CHEWABLE TAB PO SCH ×2 (16:53→20:50)
[2017-09-17] MEDS ORDERED: ATORVASTATIN 40 MG TAB PO SCH (21:00)
[2017-09-18] VITALS: BP 129/60; PULSE 72; RESP 14; TEMP 98.4; O2SAT 92
[2017-09-18 04:00] VITALS: BP 118/60; PULSE 60; RESP 14; TEMP 96.2; O2SAT 92
[2017-09-18] MEDS: HEPARIN SODIUM - SQ 10,000 UNITS/ML VIAL SQ SCH (04:26)
[2017-09-18] MEDS: SIMETHICONE 125 MG CHEWABLE TAB PO SCH (04:26)
[2017-09-18] MEDS: SODIUM CHLOR 0.9% 1000 ML INJ 1,000 ML IV SCH (04:27)
[2017-09-18 06:01] LABS: AUTOMATED NEUTROPHIL # 2.7 TH/MM3 (1.8-7.7); BASOPHIL % 1.2 % (0.0-2.0); EOSINOPHIL # 0.1 TH/MM3 (0-0.4); EOSINOPHIL % 3.1 % (0.0-4.0); HEMATOCRIT 29.5 % (35.0-46.0); HEMOGLOBIN 9.6 GM/DL (11.6-15.3); LYMPH % 19.1 % (9.0-44.0); LYMPHOCYTE # 0.8 TH/MM3 (1.0-4.8); MEAN CELL VOLUME 100.6 FL (80.0-100.0); MEAN CORPUSCULAR HEMOGLOBIN 32.7 PG (27.0-34.0); MEAN CORPUSCULAR HGB CONC 32.5 % (32.0-36.0); MEAN PLATELET VOLUME 8.6 FL (7.0-11.0); MONO % 13.1 % (0.0-8.0); MONOCYTE # 0.5 TH/MM3 (0-0.9); NEUT % 63.5 % (16.0-70.0); PLATELET COUNT 183 TH/MM3 (150-450); RED BLOOD COUNT 2.93 MIL/MM3 (4.00-5.30); RED CELL DISTRIBUTION WIDTH 13.6 % (11.6-17.2); WHITE BLOOD COUNT 4.1 TH/MM3 (4.0-11.0)
[2017-09-18 06:10] LABS: CHLORIDE 107 MEQ/L (98-107); SODIUM (NA) 139 MEQ/L (136-145)
[2017-09-18 06:16] LABS: CALCIUM 8.6 MG/DL (8.5-10.1)
[2017-09-18 06:26] LABS: ALKALINE PHOSPHATASE 137 U/L (45-117); ALT (GPT) 16 U/L (10-53); AST (GOT) 16 U/L (15-37); BICARBONATE 25.9 MEQ/L (21.0-32.0); BLOOD UREA NITROGEN 12 MG/DL (7-18); GLOMERULAR FILTRATION RATE 54 ML/MIN (>89); GLUCOSE,RANDOM 117 MG/DL (74-106); TOTAL PROTEIN 6.4 GM/DL (6.4-8.2)
[2017-09-18 08:00] VITALS: BP 117/59; PULSE 68; RESP 18; TEMP 97.8; O2SAT 93
[2017-09-18 08:01] VITALS: PULSE 64
[2017-09-18] MEDS: DOCUSATE SODIUM 50 MG/SENNA 8.6 MG TAB PO SCH (08:23)
[2017-09-18] MEDS: ASPIRIN EC 81 MG TABEC PO SCH (08:23)
[2017-09-18] MEDS: METOPROLOL TARTRATE 50 MG TAB PO SCH (08:23)
[2017-09-18] MEDS: LOSARTAN 50 MG TAB PO SCH (08:23)
[2017-09-18] MEDS: CHOLECALCIFEROL (VIT D3) 1000 UNIT TAB PO SCH (08:24)
[2017-09-18] MEDS: SODIUM CHLORIDE 0.9% FLUSH 10 ML FLUSH IV FLUSH SCH (08:29)
[2017-09-18] MEDS ORDERED: POLYETHYLENE GLYCOL 17 GM PKG PO SCH (09:00)
[2017-09-18] MEDS ORDERED: ATOR40TA16 PO (09:06)
[2017-09-18] MEDS ORDERED: ASPI-183 PO (09:06)
--- NOTE | 2017-09-18 09:06 | HHI.DCPOC ---
Discharge Care Plan Diagnosis: (1) Aorto-iliac atherosclerosis (2) Abdominal pain (3) Biliary colic Goals to Promote Your Health * To prevent worsening of your condition and complications * To maintain your health at the optimal level Directions to Meet Your Goals Take your medications as prescribed Follow your dietary instruction Follow activity as directed Keep your appointments as scheduled Take your immunizations and boosters as scheduled If your symptoms worsen call your PCP, if no PCP go to Urgent Care Center or Emergency Room Smoking is Dangerous to Your Health. Avoid second hand smoke Call the 24-hour hour crisis hotline for domestic abuse at Agustina Guillen MD Sep 18, 2017 09:06
--- NOTE | 2017-09-18 09:53 | HHI.PR ---
Subjective Remarks Patient seen and evaluated today in follow-up for abdominal pain which is likely due to biliary colic however patient also has some aortic stenosis. I did discuss this at length with the patient and she will continue to follow-up as outpatient with Dr. Jamil was a vascular surgeon. She notes no further discomfort. Results and test findings are discussed with the patient. Objective Vitals Vital Signs Date Time Temp Pulse Resp B/P (MAP) Pulse Ox O2 Delivery O2 Flow Rate FiO2 09/18/17 08:01 64 09/18/17 08:00 97.8 68 18 117/59 (78) 93 09/18/17 04:00 96.2 60 14 118/60 (79) 92 09/18/17 00:00 98.4 72 14 129/60 (83) 92 09/17/17 20:00 99.6 72 16 128/62 (84) 91 09/17/17 16:04 99.4 81 16 164/77 (106) 09/17/17 12:00 98.5 76 16 147/67 (93) 95 09/17/17 10:56 71 I/O 09/17/17 09/17/17 09/17/17 09/18/17 09/18/17 09/18/17 07:00 15:00 23:00 07:00 15:00 23:00 Intake Total 1450 ml Balance 1450 ml Intake Oral 500 ml IV Total 950 ml # Voids 3 # Bowel Movements 0 Result Diagram: 09/18/17 0505 09/18/17 0505 Imaging Last Impressions Chest X-Ray 09/17/17 0049 Signed Impressions: Service Date/Time: Sunday, September 17, 2017 01:32 - CONCLUSION: Right lung nodules and right pleural effusion Ludwig Ricardo MD Hepatobiliary Scan Nuclear Medicine 09/17/17 0000 Signed Impressions: Service Date/Time: Sunday, September 17, 2017 13:28 - CONCLUSION: Nonvisualization of the gallbladder. Moustapha White MD ADDENDUM: 18 hour images demonstrate persistent nonvisualization of the gallbladder characteristic of acute cholecystitis Moustapha White MD Gall Bladder Ultrasound 09/17/17 0000 Signed Impressions: Service Date/Time: Sunday, September 17, 2017 12:35 - CONCLUSION: 1. Abnormal appearance of the gallbladder with gallbladder wall thickening, probable stones , and pericholecystic fluid. 2. Normal dimension common hepatic duct. 3. 6 x 7 mm hyperechogenic shadowing focus in the cortex of the lower pole of the right kidney are nonspecific in appearance. Brenden Tyler MD Chest CT 09/17/17 0000 Signed Impressions: Service Date/Time: Sunday, September 17, 2017 02:09 - CONCLUSION: Tiny right lung nodules. Small right pleural effusion Ludwig Ricardo MD Abdomen/Pelvis CT 09/17/17 0000 Signed Impressions: Service Date/Time: Sunday, September 17, 2017 02:09 - CONCLUSION: Gallstones. Severe atherosclerotic changes with high-grade aortic and left iliac stenoses. This disease does appear amenable to endovascular repair. Right pleural effusion Ludwig Ricardo MD Objective Remarks GENERAL: This is a well-nourished, well-developed patient, in no apparent distress. CARDIOVASCULAR: Regular rate and rhythm without murmurs, gallops, or rubs. RESPIRATORY: Clear to auscultation. Breath sounds equal bilaterally. No wheezes , rales, or rhonchi. GASTROINTESTINAL: Abdomen soft, non-tender, nondistended. Normal active bowel sounds MUSCULOSKELETAL: Extremities without clubbing, cyanosis, or edema. NEURO: Alert & Oriented x4 to person, place, time, situation. Moves all ext x4 A/P Problem List: (1) Abdominal pain ICD Code: R10.9 - Unspecified abdominal pain Status: Acute Plan: Likely due to biliary colic. This is resolved at this time. Patient is tolerating her diet and immature without difficulty. I did increase her aspirin and instruct her with follow-up instructions. She expressed understanding. Discharge Planning Discharge home Activity unrestricted Diet low-fat Problem Qualifiers (1) Abdominal pain: Qualified Codes: R10.31 - Right lower quadrant pain Agustina Guillen MD Sep 18, 2017 09:53
[2017-09-18] MEDS ORDERED: PNEUMOCOCCAL POLYVALENT INJ 25 MCG/0.5 ML SYR IM ONE (10:00)
== END 2017-09-18 10:05 | disposition home or self-care (01) ==
LOC: PHED 23:54 → PHEDA 09-17 03:44 → PH3A 09-17 07:19
PROVIDERS: ADMIT Hospitalist; ATTEND Hospitalist
DX: K80.50 Calculus of bile duct without cholangitis or cholecystitis without obstruction (principal); I35.0 Nonrheumatic aortic (valve) stenosis; I70.0 Atherosclerosis of aorta; I70.8 Atherosclerosis of other arteries; R10.9 Unspecified abdominal pain; R82.99 Other abnormal findings in urine; I10 Essential (primary) hypertension; R11.2 Nausea with vomiting, unspecified; N17.9 Acute kidney failure, unspecified; I25.10 Atherosclerotic heart disease of native coronary artery without angina pectoris; K59.00 Constipation, unspecified; R06.00 Dyspnea, unspecified; I73.9 Peripheral vascular disease, unspecified; J44.9 Chronic obstructive pulmonary disease, unspecified; K21.9 Gastro-esophageal reflux disease without esophagitis; Z95.1 Presence of aortocoronary bypass graft; K57.92 Diverticulitis of intestine, part unspecified, without perforation or abscess without bleeding; I25.2 Old myocardial infarction; Z23 Encounter for immunization; Z85.118 Personal history of other malignant neoplasm of bronchus and lung; Z85.3 Personal history of malignant neoplasm of breast
CPT/HCPCS: 71045; 71250; 74177; 76705; 78226; 80053; 81001; 83605; 83690; 84484; 85025; 85610; 85730; 86850; 86900; 86901; 87086; 90732; 93005; 96361; 96372; 96374; 96375; 96376; 99285; A9537; G0009; G0378; J1644; J2270; J2405; J7030; Q9967; 90471